=== PATIENT | male | born 1965 | race African-American/Black ===

== ENCOUNTER 2024-01-05 12:37 | Inpatient (IN) | payer OTHER ==
[2024-01-05 13:38] VITALS: BMI 21.3
[2024-01-05] MEDS ORDERED: MAG HYDROX/AL HYDROX/SIMETH 30 ML UNIT-DOSE CUP PO PRN (14:10)
[2024-01-05] MEDS ORDERED: NALOXONE (NARCAN) HCL 4 MG/0.1 ML SPRAY NS PRN (14:10)
[2024-01-05] MEDS ORDERED: ACETAMINOPHEN 325 MG TABLET (FP) PO PRN (14:10)
[2024-01-05] MEDS ORDERED: ONDANSETRON *ODT* 4 MG TABLET SL PRN (14:10)
[2024-01-05] MEDS ORDERED: DICYCLOMINE HCL 10 MG CAPSULE PO PRN (14:10)
[2024-01-05] MEDS ORDERED: BENZONATATE 200 MG CAPSULE PO PRN (14:10)
[2024-01-05] MEDS ORDERED: LOPERAMIDE HCL 2 MG CAPSULE PO PRN (14:10)
[2024-01-05] MEDS ORDERED: BISMUTH SUBSALICYLATE 524 MG/30 ML PO PRN (14:10)
[2024-01-05] MEDS ORDERED: POLYETHYLENE GLYCOL (HEALTHYLAX) 3350 17 GM PACKET PO PRN (14:10)
[2024-01-05] MEDS ORDERED: hydrOXYzine PAMOATE 25 MG CAPSULE (FP) PO PRN (14:10)
[2024-01-05] MEDS ORDERED: NALOXONE HCL 0.4 MG/ML VIAL IM PRN (14:10)
[2024-01-05] MEDS ORDERED: MAGNESIUM HYDROX 2400MG/30ML ORAL SUSPENSION 30 ML CUP PO PRN (14:10)
[2024-01-05] MEDS ORDERED: chlordiazePOXIDE HCL 25 MG CAPSULE PO PRN (14:12)
[2024-01-05] MEDS ORDERED: chlordiazePOXIDE HCL 25 MG CAPSULE ONE (14:22)
[2024-01-05] MEDS ORDERED: NICOTINE 14 MG/24 HOURS TOPICAL PATCH TD ONE (14:23)
[2024-01-05] MEDS ORDERED: amLODIPine BESYLATE 5 MG TABLET (FP) ONE (14:23)
[2024-01-05] MEDS ORDERED: PRENATAL VITAMINS W/ FOLIC ACID TABLET (FP) PO ONE (14:23)
[2024-01-05] MEDS: NICOTINE 14 MG/24 HOURS TOPICAL PATCH TD SCH (14:27)
[2024-01-05] MEDS: PRENATAL VITAMINS W/ FOLIC ACID TABLET (FP) PO SCH (14:28)
[2024-01-05] MEDS: amLODIPine BESYLATE 10 MG TABLET (FP) PO SCH (14:28)
[2024-01-05] MEDS: chlordiazePOXIDE HCL 25 MG CAPSULE PO ONE (14:32)
[2024-01-05] MEDS: amLODIPine BESYLATE 5 MG TABLET (FP) PO ONE (14:49)
[2024-01-05] MEDS: chlordiazePOXIDE HCL 25 MG CAPSULE PO SCH (17:25)
[2024-01-05] MEDS: SULFAMETHOXAZOLE/TRIMETHOPRIM 800MG/160MG D.S. TABLET PO SCH (22:24)
[2024-01-05] MEDS: THIAMINE 100 MG TABLET PO SCH (22:24)
[2024-01-05] MEDS: METHOCARBAMOL 500 MG TABLET PO PRN (22:24)
[2024-01-05] MEDS: MELATONIN 5 MG TABLETS PO SCH (22:24)
[2024-01-06] MEDS: IBUPROFEN 600 MG TABLET (FP) PO PRN (06:00)
[2024-01-06] MEDS: guaiFENesin 600 MG TABLET.ER (FP) PO PRN (06:00)
[2024-01-06] MEDS: risperiDONE 1 MG TABLET PO SCH (11:16)
[2024-01-06 11:54] LABS: CHLORIDE 108 mmol/L (98-107); SODIUM 139 mmol/L (136-145)
[2024-01-06 11:58] LABS: CALCIUM 8.6 mg/dL (8.5-10.1)
[2024-01-06 11:59] LABS: ALBUMIN 2.4 g/dl (3.4-5.0); ANION GAP 5 mmol/L (4-13); BLOOD UREA NITROGEN 13.7 mg/dL (7-18); CO2 25 mmol/L (21-32); GLUCOSE,RANDOM 117 mg/dL (74-106)
[2024-01-06 12:01] LABS: HEMATOCRIT 27.9 % (35.4-49); HEMOGLOBIN 8.7 GM/dL (11.7-16.9); MCH 22.2 pg (25.7-33.7); MCHC 31.2 g/dl (32.0-35.9); MEAN CELL VOLUME 71.2 fl (80-96); MEAN PLT VOLUME 8.3 fl (7.5-11.1); PLATELET COUNT 372 10^3/uL (134-434); RBC 3.93 M/mm3 (4.00-5.60); RDW 22.4 % (11.9-15.9); WHITE BLOOD COUNT 7.7 K/mm3 (4.0-10.0)
[2024-01-06 12:02] LABS: CREATININE 1.2 mg/dL (0.55-1.3); SGOT/AST 14 U/L (15-37); SGPT/ALT 14 U/L (13-61)
[2024-01-06 12:03] LABS: BILIRUBIN,TOTAL 0.3 mg/dL (0.2-1); TOT PROT 6.7 g/dl (6.4-8.2)
[2024-01-06 12:05] LABS: ALK PHOS 73 U/L (45-117)
[2024-01-07] MEDS: chlordiazePOXIDE HCL 25 MG CAPSULE PO SCH (06:07)
[2024-01-07] MEDS: LACTULOSE 20 GM/30 ML UDC (FOR ORAL USE ONLY) PO ONE (15:03)
[2024-01-07] MEDS: chlordiazePOXIDE 5 MG CAPSULE PO SCH (17:38)
[2024-01-07] MEDS: LACTULOSE 20 GM/30 ML UDC (FOR ORAL USE ONLY) PO SCH (17:40)
[2024-01-07] MEDS: BENZOCAINE/MENTHOL (CHLORASEPTIC ) LOZENGE MM PRN (22:31)
[2024-01-08] MEDS ORDERED: chlordiazePOXIDE 5 MG CAPSULE PO PRN
[2024-01-08] MEDS ORDERED: chlordiazePOXIDE HCL 10 MG CAPSULE PO PRN
[2024-01-08] MEDS ORDERED: chlordiazePOXIDE HCL 10 MG CAPSULE PO SCH ×2 (05:00)
[2024-01-08] MEDS: BACITRACIN 0.9 GM PACKET TP SCH (10:11)
[2024-01-08] MEDS: MUPIROCIN 2% TOPICAL OINTMENT 22 GM TUBE TP SCH (11:31)
[2024-01-09] MEDS ORDERED: chlordiazePOXIDE HCL 10 MG CAPSULE PO SCH (05:00)
[2024-01-09] MEDS: chlordiazePOXIDE 5 MG CAPSULE PO SCH (06:18)
[2024-01-09] MEDS: CYANOCOBALAMIN 1,000 MCG TABLET (FP) PO SCH (14:58)
[2024-01-09] MEDS: FERROUS SO4 325 MG TABLET (FP) PO SCH (17:47)
[2024-01-09] MEDS: IBUPROFEN 400 MG TABLET (FP) PO PRN (18:37)
[2024-01-10] MEDS ORDERED: chlordiazePOXIDE HCL 10 MG CAPSULE PO ONE (05:00)
[2024-01-10] MEDS: chlordiazePOXIDE 5 MG CAPSULE PO ONE (05:55)
[2024-01-11 06:53] VITALS: RESP 16
[2024-01-11 09:03] VITALS: BP 135/69; PULSE 70; TEMP 97.5
== END 2024-01-11 11:31 | disposition home or self-care (01) | DRG 774 ==
LOC: YASAS 12:37 → Y6N 14:32
PROVIDERS: ADMIT Allergy & Immunology; ATTEND Surgery
PROC: HZ2ZZZZ Detoxification Services for Substance Abuse Treatment (ICD-10-PCS; principal; 2024-01-05)
DX: F10.230 Alcohol dependence with withdrawal, uncomplicated (principal); F14.20 Cocaine dependence, uncomplicated; F12.20 Cannabis dependence, uncomplicated; F17.210 Nicotine dependence, cigarettes, uncomplicated; F20.9 Schizophrenia, unspecified; F19.282 Other psychoactive substance dependence with psychoactive substance-induced sleep disorder; F19.24 Other psychoactive substance dependence with psychoactive substance-induced mood disorder; L89.892 Pressure ulcer of other site, stage 2; D50.9 Iron deficiency anemia, unspecified; I10 Essential (primary) hypertension; R79.89 Other specified abnormal findings of blood chemistry; Z86.19 Personal history of other infectious and parasitic diseases; Z88.0 Allergy status to penicillin
CPT/HCPCS: 36415; 80053; 80305; 80307; 82140; 82607; 82728; 82747; 83540; 83550; 85014; 85027; 86593; 86780; 93005; 93010

== ENCOUNTER 2024-09-10 13:15 | Inpatient (IN) | payer OTHER ==
[2024-09-10 14:00] VITALS: BMI 21.3
[2024-09-10] MEDS ORDERED: LOPERAMIDE HCL 2 MG CAPSULE PO PRN (14:12)
[2024-09-10] MEDS ORDERED: BENZONATATE 200 MG CAPSULE PO PRN (14:12)
[2024-09-10] MEDS ORDERED: IBUPROFEN 600 MG TABLET (FP) PO PRN (14:12)
[2024-09-10] MEDS ORDERED: ACETAMINOPHEN 325 MG TABLET (FP) PO PRN (14:12)
[2024-09-10] MEDS ORDERED: diazePAM 5 MG TABLET PO PRN (14:12)
[2024-09-10] MEDS ORDERED: POLYETHYLENE GLYCOL (HEALTHYLAX) 3350 17 GM PACKET PO PRN (14:12)
[2024-09-10] MEDS ORDERED: MAGNESIUM HYDROX 2400MG/30ML ORAL SUSPENSION 30 ML CUP PO PRN (14:12)
[2024-09-10] MEDS ORDERED: IBUPROFEN 400 MG TABLET (FP) PO PRN (14:12)
[2024-09-10] MEDS ORDERED: NALOXONE (NARCAN) HCL 4 MG/0.1 ML SPRAY NS PRN (14:12)
[2024-09-10] MEDS ORDERED: BENZOCAINE/MENTHOL (CHLORASEPTIC ) LOZENGE MM PRN (14:12)
[2024-09-10] MEDS ORDERED: BISMUTH SUBSALICYLATE 524 MG/30 ML PO PRN (14:12)
[2024-09-10] MEDS ORDERED: METHOCARBAMOL 500 MG TABLET PO PRN (14:12)
[2024-09-10] MEDS ORDERED: DICYCLOMINE HCL 10 MG CAPSULE PO PRN (14:12)
[2024-09-10] MEDS ORDERED: ONDANSETRON *ODT* 4 MG TABLET SL PRN (14:12)
[2024-09-10] MEDS ORDERED: cloNIDine HCL 0.1 MG TABLET ONE (14:21)
[2024-09-10] MEDS: cloNIDine HCL 0.1 MG TABLET PO ONE ×2 (14:25→23:02)
[2024-09-10] MEDS ORDERED: diazePAM 5 MG TABLET ONE (17:18)
[2024-09-10] MEDS: diazePAM 5 MG TABLET PO SCH (17:22)
[2024-09-10] MEDS: amLODIPine BESYLATE 10 MG TABLET (FP) PO SCH (18:33)
[2024-09-10] MEDS: BACITRACIN 0.9 GM PACKET TP SCH (18:33)
[2024-09-10] MEDS: guaiFENesin 600 MG TABLET.ER (FP) PO PRN (20:54)
[2024-09-10] MEDS: VITAMINS A AND D TOPICAL OINTMENT TP SCH (23:02)
[2024-09-10] MEDS: MELATONIN 5 MG TABLETS PO SCH (23:02)
[2024-09-10] MEDS: THIAMINE 100 MG TABLET PO SCH (23:02)
[2024-09-11] MEDS: PRENATAL VITAMINS W/ FOLIC ACID TABLET (FP) PO SCH (10:29)
[2024-09-11] MEDS: traZODone HCL 50 MG TABLET (FP) PO SCH (22:09)
[2024-09-11] MEDS: DIVALPROEX SODIUM 250 MG TABLET E.C. PO SCH (22:09)
[2024-09-11] MEDS: MAG HYDROX/AL HYDROX/SIMETH 30 ML UNIT-DOSE CUP PO PRN (22:28)
[2024-09-12] MEDS: diazePAM 5 MG TABLET PO SCH (05:46)
[2024-09-12 09:01] LABS: POTASSIUM 4.4 mmol/L (3.5-5.1)
[2024-09-12 09:16] LABS: BILIRUBIN,TOTAL 0.3 mg/dL (0.2-1); TOT PROT 6.4 g/dl (6.4-8.2)
[2024-09-12 09:17] LABS: CALCIUM 8.5 mg/dL (8.5-10.1)
[2024-09-12 09:18] LABS: ALBUMIN 2.6 g/dl (3.4-5.0)
[2024-09-12 09:21] LABS: CREATININE 0.8 mg/dL (0.55-1.3)
[2024-09-12] MEDS: risperiDONE 0.5 MG TABLET PO SCH (09:46)
[2024-09-12 09:54] LABS: HEMATOCRIT 30.7 % (40.1-51.0); HEMOGLOBIN 9.6 g/dL (13.7-17.5); MCHC 31.3 g/dl (32.3-36.5); MEAN CELL VOLUME 68.8 fl (79.0-92.2); MEAN PLT VOLUME 10.6 fl (9.4-12.4); PLATELET COUNT # 431 x10^3/uL (163-337); RDW 17.1 % (12.2-16.1)
[2024-09-12] MEDS: PANTOPRAZOLE 40 MG TABLET PO SCH (15:42)
[2024-09-12] MEDS: LOSARTAN POTASSIUM 50 MG TABLET PO SCH (15:42)
[2024-09-12] MEDS: FERROUS SO4 325 MG TABLET (FP) PO SCH (15:42)
[2024-09-13] MEDS: diazePAM 5 MG TABLET PO SCH (05:50)
[2024-09-13] MEDS: hydrOXYzine PAMOATE 25 MG CAPSULE (FP) PO PRN (05:51)
[2024-09-13] MEDS: HYDROCHLOROTHIAZIDE 25 MG TABLET (FP) PO SCH (11:00)
[2024-09-14 05:40] VITALS: RESP 16
[2024-09-14] MEDS: diazePAM 5 MG TABLET PO ONE (05:56)
[2024-09-14 09:00] VITALS: BP 134/81; PULSE 86; TEMP 96.9
[2024-09-14] MEDS: LOSARTAN POTASSIUM 50 MG TABLET PO SCH (10:35)
== END 2024-09-14 11:52 | disposition home or self-care (01) | DRG 774 ==
LOC: YASAS 13:15 → Y3N 17:08
PROVIDERS: ADMIT Allergy & Immunology; ATTEND Allergy & Immunology
PROC: HZ2ZZZZ Detoxification Services for Substance Abuse Treatment (ICD-10-PCS; principal; 2024-09-10)
DX: F10.230 Alcohol dependence with withdrawal, uncomplicated (principal); F13.20 Sedative, hypnotic or anxiolytic dependence, uncomplicated; F14.20 Cocaine dependence, uncomplicated; F17.210 Nicotine dependence, cigarettes, uncomplicated; F19.282 Other psychoactive substance dependence with psychoactive substance-induced sleep disorder; F19.24 Other psychoactive substance dependence with psychoactive substance-induced mood disorder; F25.9 Schizoaffective disorder, unspecified; I10 Essential (primary) hypertension; K21.9 Gastro-esophageal reflux disease without esophagitis; L89.892 Pressure ulcer of other site, stage 2; L03.116 Cellulitis of left lower limb; R05.9 Cough, unspecified; Z88.0 Allergy status to penicillin
CPT/HCPCS: 0241U-QW; 36415; 80053; 80305; 80307; 85027; 86593; 86780; 93005; 93010